=== PATIENT | male | born 1995 | race American Indian/Alaskan Native ===

== ENCOUNTER 2017-11-09 17:24 | Emergency (ER) | payer SELFPAY ==
[2017-11-09 17:39] VITALS: BP 145/87
--- NOTE | 2017-11-09 20:23 | Emergency Department Report ---
ED Chest Pain HPI - General Chief Complaint: Abdominal Pain Stated Complaint: PAIN IN ABD GOING TO CHEST Time Seen by Provider: 11/09/17 18:37 Source: patient Mode of arrival: Ambulatory Limitations: No Limitations - History of Present Illness Initial Comments: Patient is a 22-year-old -Spanish male who is presenting with epigastric pain for the last 3 months. Patient states he has a knot in his epigastric area and a nagging pain. Patient also states for the last year he's been having a cold feeling in his buttock after he has a bowel movement sharp radiating pain that goes to his body from the rectal area through his abdomen intermittently every several days. Patient denies any fevers chills nausea vomiting diarrhea. The patient is a very poor historian seems to jump from one complaint to the next very Quickly. Patient admits to smoking marijuana cigarettes in the past. And - Related Data Previous Rx's Medication Instructions Recorded Last Taken Type HYDROcodone/APAP 5-325 [[place] 1 each PO Q6HR PRN #20 tablet 04/11/14 Unknown Rx 5-325 mg TAB] Ibuprofen [Motrin 800 MG tab] 800 mg PO Q8H #30 tablet 04/11/14 Unknown Rx Ranitidine HCl [Zantac 150 MG TAB] 150 mg PO BID #60 tablet 07/16/15 Unknown Rx Doxycycline [Vibramycin CAP] 100 mg PO Q12HR #3 capsule 01/12/16 Unknown Rx Dicyclomine [Bentyl] 10 mg PO QID #20 capsule 11/09/17 Unknown Rx Allergies Allergy/AdvReac Type Severity Reaction Status Date / Time No Known Allergies Allergy Unverified 04/11/14 12:11 Heart Score - HEART Score History: Slightly suspicious EKG: Normal Age: < 45 Risk factors: No known risk factors Troponin: < normal limit HEART Score: 0 ED Review of Systems ROS: Stated complaint: PAIN IN ABD GOING TO CHEST Other details as noted in HPI Comment: All other systems reviewed and negative ED Past Medical Hx - Past Medical History Previous Medical History?: No - Surgical History Past Surgical History?: No - Social History Smoking Status: Current Every Day Smoker Substance Use Type: Marijuana - Medications Home Medications: Home Medications Medication Instructions Recorded Confirmed Last Taken Type HYDROcodone/APAP 5-325 [[place] 1 each PO Q6HR PRN #20 tablet 04/11/14 Unknown Rx 5-325 mg TAB] Ibuprofen [Motrin 800 MG tab] 800 mg PO Q8H #30 tablet 04/11/14 Unknown Rx Ranitidine HCl [Zantac 150 MG TAB] 150 mg PO BID #60 tablet 07/16/15 Unknown Rx Doxycycline [Vibramycin CAP] 100 mg PO Q12HR #3 capsule 01/12/16 Unknown Rx Dicyclomine [Bentyl] 10 mg PO QID #20 capsule 11/09/17 Unknown Rx ED Physical Exam - General Limitations: No Limitations General appearance: alert, in no apparent distress - Head Head exam: Present: atraumatic, normocephalic - Eye Eye exam: Present: normal appearance - ENT ENT exam: Present: mucous membranes moist - Neck Neck exam: Present: normal inspection - Respiratory Respiratory exam: Present: normal lung sounds bilaterally. Absent: respiratory distress - Cardiovascular Cardiovascular Exam: Present: regular rate, normal rhythm, other (patient is very thin and you can palpate his xiphoid process). Absent: systolic murmur, diastolic murmur, rubs, gallop - GI/Abdominal GI/Abdominal exam: Present: soft, normal bowel sounds - Rectal Rectal exam: Present: deferred - External exam: Present: lesions - Extremities Exam Extremities exam: Present: normal inspection - Back Exam Back exam: Present: normal inspection - Neurological Exam Neurological exam: Present: alert, oriented X3 - Psychiatric Psychiatric exam: Present: normal affect, normal mood - Skin Skin exam: Present: warm, dry, intact, normal color. Absent: rash ED Course Vital Signs 11/09/17 17:34 Temperature 98.6 F Pulse Rate 89 Respiratory 18 Rate Blood Pressure 145/87 O2 Sat by Pulse 100 Oximetry KUNAL score - Kunal Score Age > 65: (0) No Aspirin use within the Past 7 Days: (0) No 3 or more CAD Risk Factors: (0) No 2 or more Angina events in past 24 hrs: (0) No Known CAD with more than 50% Stenosis: (0) No Elevated Cardiac Markers: (0) No ST Deviation Greater than 0.5mm: (0) No KUNAL Score: 0 ED Medical Decision Making - EKG Data -: EKG Interpreted by Me EKG shows normal: sinus rhythm, axis, intervals, QRS complexes, ST-T waves (ST segments are within normal limits he does have a significant J point notching which is normal for his age.) - Radiology Data Radiology results: image reviewed X-ray of the chest and abdomen shows no acute abnormality - Medical Decision Making Patient is here with very complaints from pain after having bowel movements to shooting pain in his buttock to chest pain and pain and not growing in his epigastrium which is his xiphoid process. Patient's EKG is within normal limits as well as his x-ray patient will be discharged home. Patient given GI for follow-up. Critical care attestation.: If time is entered above; I have spent that time in minutes in the direct care of this critically ill patient, excluding procedure time. ED Disposition Clinical Impression: Atypical chest pain, Chronic abdominal pain Disposition: DC- TO HOME OR SELFCARE Is pt being admited?: No Does the pt Need Aspirin: No Condition: Stable Instructions: Chest Pain (ED), Abdominal Pain (ED) Prescriptions: Dicyclomine [Bentyl] 10 mg PO QID #20 capsule Referrals: MARCELLA GUTIERRES MD [Staff Physician] - 3-5 Days
--- NOTE | 2017-11-09 20:32 | XRay Report ---
FINAL REPORT PROCEDURE: XR ABD SERIES W CXR 1V TECHNIQUE: Abdominal series complete, including supine and upright AP views of the abdomen and frontal chest. HISTORY: chest and abd pain COMPARISON: No prior studies are available for comparison. FINDINGS: Heart: Normal. Mediastinum/Vessels: Normal. Lungs/Pleural space: Normal. Bowel gas pattern: Nonobstructive. Masses or calcifications: None. Bony structures: No acute osseous abnormality. Other: No free intraperitoneal air. IMPRESSION: Nonobstructive bowel gas pattern. No radiographic evidence of acute cardiopulmonary disease process
== END 2017-11-09 20:33 | disposition home or self-care (01) ==
LOC: ED 17:24
DX: R07.89 Other chest pain (principal); R10.13 Epigastric pain; G89.29 Other chronic pain; F17.210 Nicotine dependence, cigarettes, uncomplicated; F12.10 Cannabis abuse, uncomplicated
CPT/HCPCS: 74022; 93005; 93010; 99283

== ENCOUNTER 2018-03-24 23:49 | Emergency (ER) | payer SELFPAY ==
--- NOTE | 2018-03-25 00:30 | XRay Report ---
FINAL REPORT PROCEDURE: XR SHOULDER 2+V RT TECHNIQUE: RIGHT shoulder radiographs including AP views in internal and external rotation. CPT 15624 HISTORY: trauma COMPARISON: No prior studies are available for comparison. FINDINGS: Fracture (s) and/or Dislocation(s): None . Joint space(s): Normal . Soft tissues: Normal . Bone mineralization: Normal . Foreign bodies: None . IMPRESSION: Normal Examination
[2018-03-25 05:26] VITALS: BP 118/82
[2018-03-25] MEDS ORDERED: ULTRAM PO ONE (05:28)
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
== END 2018-03-25 05:53 | disposition home or self-care (01) ==
LOC: ED 23:49
DX: S49.91XA Unspecified injury of right shoulder and upper arm, initial encounter (principal); Y08.89XA Assault by other specified means, initial encounter; Y93.89 Activity, other specified; Y92.89 Other specified places as the place of occurrence of the external cause; Y99.8 Other external cause status
CPT/HCPCS: 99283

== ENCOUNTER 2021-06-25 12:24 | Emergency (ER) | payer SELFPAY ==
[2021-06-25] MEDS ORDERED: BUPIVACAINE/PF (0.25%) 2.5 MG/ML 30 ML VIAL INFILTRATI ONE (13:52)
[2021-06-25] MEDS ORDERED: BUPIVACAINE/PF (0.5%) 5 MG/1 ML 10 ML VIAL INFILTRATI ONE (13:52)
--- NOTE | 2021-06-25 14:19 | Emergency Department Report ---
ED General Adult HPI - General Chief complaint: Dental/Oral Stated complaint: ABCESS TOOTH,HEADACHE,JAW PAIN Time Seen by Provider: 06/25/21 12:56 Source: patient Mode of arrival: Ambulatory Limitations: No Limitations - History of Present Illness Initial comments: 26-year-old -[place] male patient presents with complaints of left upper dental pain x1 week. Patient states he began to have facial swelling and worsening pain over the past few days. He denies any fever/chills/sweats, dysphagia, cough, or chest pain. Patient rates his pain as a 9/10 in severity and states ibuprofen, Tylenol, and aspirin are not helping. No past medical his tory per patient. - Related Data Previous Rx's Medication Instructions Recorded Last Taken Type HYDROcodone/APAP 5-325 [[place] 1 each PO Q6HR PRN #20 tablet 04/11/14 Unknown Rx 5-325 mg TAB] Ibuprofen [Motrin 800 MG tab] 800 mg PO Q8H #30 tablet 04/11/14 Unknown Rx raNITIdine HCl [Zantac 150 MG TAB] 150 mg PO BID #60 tablet 07/16/15 Unknown Rx DOXYCYCLINE Hyclate [Vibramycin 100 mg PO Q12HR #3 capsule 01/12/16 Unknown Rx CAP] Dicyclomine [Bentyl] 10 mg PO QID #20 capsule 11/09/17 Unknown Rx Ibuprofen [Motrin 600 MG tab] 600 mg PO Q8H PRN #30 tablet 03/25/18 Unknown Rx traMADoL [Ultram 50 MG tab] 50 mg PO Q6HR PRN #12 tablet 03/25/18 Unknown Rx Acetaminophen/Codeine [Tylenol 1 tab PO Q8H PRN #10 tab 06/25/21 Unknown Rx /Codeine # 3 tab] Clindamycin [Clindamycin CAP] 300 mg PO Q6H 10 Days #40 capsule 06/25/21 Unknown Rx Allergies Allergy/AdvReac Type Severity Reaction Status Date / Time No Known Allergies Allergy Verified 06/25/21 12:54 ED Review of Systems ROS: Stated complaint: ABCESS TOOTH,HEADACHE,JAW PAIN Other details as noted in HPI Constitutional: denies: chills, fever ENT: dental pain. denies: throat pain Respiratory: denies: cough Cardiovascular: denies: chest pain ED Past Medical Hx - Past Medical History Previous Medical History?: No - Surgical History Past Surgical History?: No - Social History Smoking Status: Never Smoker Substance Use Type: None - Medications Home Medications: Home Medications Medication Instructions Recorded Confirmed Last Taken Type HYDROcodone/APAP 5-325 [[place] 1 each PO Q6HR PRN #20 tablet 04/11/14 Unknown Rx 5-325 mg TAB] Ibuprofen [Motrin 800 MG tab] 800 mg PO Q8H #30 tablet 04/11/14 Unknown Rx raNITIdine HCl [Zantac 150 MG TAB] 150 mg PO BID #60 tablet 07/16/15 Unknown Rx DOXYCYCLINE Hyclate [Vibramycin 100 mg PO Q12HR #3 capsule 01/12/16 Unknown Rx CAP] Dicyclomine [Bentyl] 10 mg PO QID #20 capsule 11/09/17 Unknown Rx Ibuprofen [Motrin 600 MG tab] 600 mg PO Q8H PRN #30 tablet 03/25/18 Unknown Rx traMADoL [Ultram 50 MG tab] 50 mg PO Q6HR PRN #12 tablet 03/25/18 Unknown Rx Acetaminophen/Codeine [Tylenol 1 tab PO Q8H PRN #10 tab 06/25/21 Unknown Rx /Codeine # 3 tab] Clindamycin [Clindamycin CAP] 300 mg PO Q6H 10 Days #40 capsule 06/25/21 Unknown Rx ED Physical Exam - General Limitations: No Limitations General appearance: alert, in no apparent distress - Head Head exam: Present: atraumatic, normocephalic - Eye Eye exam: Present: normal appearance. Absent: scleral icterus - Expanded ENT Exam Expanded Mouth exam: Present: muffled voice, tongue normal. Absent: drooling, trismus 1 - Dental Tenderness (dental abscess noted with overlying moderate facial s welling, no cellulitic changes noted) Throat exam: Negative: tonsillar erythema - Neck Neck exam: Absent: lymphadenopathy - Respiratory Respiratory exam: Present: normal lung sounds bilaterally. Absent: respiratory distress - Cardiovascular Cardiovascular Exam: Present: regular rate - Neurological Exam Neurological exam: Present: alert, oriented X3 - Psychiatric Psychiatric exam: Present: normal affect, normal mood - Skin Skin exam: Present: warm, dry, intact, normal color. Absent: rash ED Course Vital Signs 06/25/21 12:56 Temperature 98.6 F Pulse Rate 64 Respiratory 16 Rate Blood Pressure 130/88 O2 Sat by Pulse 100 Oximetry - I & D Face Type of Procedure: Simple Site: Left upper dental Blade Size: 11 Progress: Area prepped with alcohol. 1 cc of Marcaine 0.5% without epi used to digitally block left upper molar area. Mild purulent drainage obtained from wound. Patient tolerated procedure well without any immediate complications. ED Medical Decision Making - Medical Decision Making 26-year-old -[place] male patient presents with complaints of left upper dental pain x1 week. Patient states he began to have facial swelling and worsening pain over the past few days. He denies any fever/chills/sweats, dysphagia, cough, or chest pain. Patient rates his pain as a 9/10 in severity and states ibuprofen, Tylenol, and aspirin are not helping. No past medical history per patient. Dental block performed with Marcaine and abscess was incised to alleviate some drainage and pressure. Patient informed to follow-up with dental specialist within 2 to 3 days. Clindamycin given for home. Patient is well-appearing, his vitals are normal, he is stable for discharge home. Discussed in detail signs and symptoms that should prompt immediate return to the ED with patient verbalizes understanding. Critical care attestation.: If time is entered above; I have spent that time in minutes in the direct care of this critically ill patient, excluding procedure time. ED Disposition Clinical Impression: Dental abscess Disposition: HOME / SELF CARE / HOMELESS Is pt being admited?: No Condition: Stable Instructions: Dental Abscess Additional Instructions: Please follow-up with a dental specialist within 2 to 3 days. Prescriptions: Clindamycin [Clindamycin CAP] 300 mg PO Q6H 10 Days #40 capsule Acetaminophen/Codeine [Tylenol /Codeine # 3 tab] 1 tab PO Q8H PRN #10 tab PRN Reason: Pain , Severe (7-10) Forms: Work/School Release Form(ED)
[2021-06-25 14:41] VITALS: BP 121/81
== END 2021-06-25 14:53 | disposition home or self-care (01) ==
LOC: ED 12:24
DX: K04.7 Periapical abscess without sinus (principal); Z79.899 Other long term (current) drug therapy
CPT/HCPCS: 99281